=== PATIENT | female | born 1965 | race Caucasian/White ===

== ENCOUNTER 2025-04-28 12:24 | Emergency (ER) | payer BC ==
[~2025-04-28] VITALS: Ht 170.2 cm; Wt 55.3 kg
[2025-04-28 12:35] VITALS: BP 125/58; TEMP 98.4
[2025-04-28 12:43] VITALS: O2SAT 100
== END 2025-04-28 12:43 | disposition home or self-care (01) ==
LOC: ER 12:24
DX: H11.32 Conjunctival hemorrhage, left eye (principal); F17.200 Nicotine dependence, unspecified, uncomplicated